=== PATIENT | male | born 1975 | race Caucasian/White ===

== ENCOUNTER 2016-10-22 13:00 | Inpatient (IN) | payer OTHER ==
[2016-10-22] MEDS ORDERED: diPHENhydraMINE PO* 25 MG PO PRN (18:38)
[2016-10-22] MEDS ORDERED: Ibuprofen TAB* 400 MG PO PRN (18:38)
[2016-10-22] MEDS ORDERED: LORazepam INJ* 2 MG/ML 1 ML VIAL IV PRN (18:38)
[2016-10-22] MEDS ORDERED: Albuterol 2.5 MG/3 ML NEB.SOL* (0.083%) INH PRN (18:56)
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
[2016-10-22] MEDS ORDERED: Lithium Carbonate ER* 450 MG TAB.ER PO SCH ×2 (21:00→22:10)
[2016-10-22] MEDS ORDERED: Gabapentin CAP(*) 300 MG PO SCH ×2 (21:00→22:10)
[2016-10-22] MEDS ORDERED: Lamotrigine XR (NF) 100 MG TAB PO SCH (21:00)
[2016-10-22] MEDS: Nicotine PATCH 14 MG/24 HR* PATCH TRANSDERM SCH (22:26)
[2016-10-22] MEDS: Cetirizine* 10 MG TAB PO SCH (22:27)
[2016-10-22] MEDS: levETIRAcetam TAB* 500 MG PO SCH (22:27)
[2016-10-22] MEDS ORDERED: lamoTRIgine TAB(*) 100 MG PO SCH (23:00)
[2016-10-22] MEDS: Gabapentin CAP(*) 300 MG PO SCH (23:13)
[2016-10-22] MEDS: Lithium Carbonate ER* 450 MG TAB.ER PO SCH (23:13)
[2016-10-23] MEDS: Omeprazole CAP* 20 MG PO SCH (06:36)
[2016-10-23] MEDS: Nicotine Patch Removal NOTE PATCH OFF SCH (06:36)
[2016-10-23] MEDS: Nicotine PATCH 14 MG/24 HR* PATCH TRANSDERM SCH (08:06)
[2016-10-23] MEDS: Sertraline* 100 MG TAB PO SCH (08:10)
[2016-10-23] MEDS: Propranolol LA CAP* 60 MG PO SCH (08:10)
[2016-10-23] MEDS: Gabapentin CAP(*) 300 MG PO SCH ×2 (08:19→17:59)
[2016-10-23] MEDS: levETIRAcetam TAB* 500 MG PO SCH ×2 (08:22→21:14)
[2016-10-23] MEDS ORDERED: lamoTRIgine TAB(*) 100 MG PO SCH (09:00)
[2016-10-23] MEDS ORDERED: LAMOTRIGINE 150 MG PO SCH (09:00)
[2016-10-23] MEDS ORDERED: Gabapentin CAP(*) 300 MG PO SCH (09:00)
--- NOTE | 2016-10-23 09:20 | EEG ---
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 He reports sometimes having a warning of headache prior to experiencing loss of awareness, unresponsiveness and right-sided shaking of his arm and leg. This lasts a few minutes and afterward the right side is numb, he feels confused and weak. It takes him 30 to 45 minutes to recover. He may also have staring spells, but he knows less about these and has only been "yelled at" by his girlfriend when she witnesses one. He is treated with Lamictal and levetiracetam and the present long-term monitoring is being undertaken in order to characterize these events and evaluate for epileptiform abnormalities. Introduction: INTRODUCTION: The EEG was monitored from 21 scalp electrodes. Nineteen electrodes consisted of the standard parasagittal, temporal and midline leads of the International 10 -20 system. In addition, special electrodes FT9 and FT10 were placed. EEG data were recorded on an [employer] system with simultaneous MPEG-4 digital video recording of patient behavior. EEG recording was in a monopolar montage with all electrodes referenced to FCz. Significant behavioral events were signaled by an event button, or putative electrical seizure events were detected by a computer program. All EEG data were reviewed in their entirety on a monitor with reconstruction of montages and adjustments of sensitivity and filtering. Simultaneous patient behavior was viewed on an adjacent monitor and correlated with the EEG. - Medications Active Medications: Albuterol (Ventolin 2.5 Mg/3 Ml Neb.Rolanda*) 2.5 mg INH Q6H PRN PRN Reason: SOB/WHEEZING Cetirizine HCl (Zyrtec*) 10 mg PO BEDTIME [facility] Last Admin: 10/22/16 22:27 Dose: 10 mg Diphenhydramine HCl (Benadryl Po*) 25 mg PO Q6H PRN PRN Reason: ITCHING Gabapentin (Neurontin Cap(*)) 600 mg PO DAILY [facility] Last Admin: 10/23/16 08:19 Dose: 600 mg Gabapentin (Neurontin Cap(*)) 300 mg PO 1800 [facility] Last Admin: 10/22/16 23:13 Dose: 300 mg Ibuprofen (Motrin Tab*) 400 mg PO Q6H PRN PRN Reason: PAIN Lamotrigine (Lamictal Tab(*)) 100 mg PO BEDTIME [facility] Last Admin: 10/22/16 23:13 Dose: 100 mg Lamotrigine (Lamictal Tab(*)) 150 mg PO DAILY [facility] Last Admin: 10/23/16 08:21 Dose: 150 mg Levetiracetam (Keppra Tab*) 1,000 mg PO BID [facility] Last Admin: 10/23/16 08:22 Dose: 1,000 mg [place] Carbonate (Ren[place]ers Carbonate Er Tab*) 900 mg PO 1800 [facility] Last Admin: 10/22/16 23:13 Dose: 900 mg Lorazepam (Ativan Inj*) 1 mg IV Q8H PRN PRN Reason: Generalized Tonic Clonic Seizu Nicotine (Nicotine Patch 14 Mg/24 Hr*) 1 patch TRANSDERM DAILY@0800 [facility] Last Admin: 10/23/16 08:06 Dose: 1 patch Omeprazole (Prilosec Cap*) 20 mg PO DAILY@0600 [facility] Last Admin: 10/23/16 06:36 Dose: 20 mg Pharmacy Profile Note (Nicotine Patch Removal Note*) 1 note PATCH OFF 0600 [facility] Last Admin: 10/23/16 06:36 Dose: 1 note Propranolol HCl (Inderal La Cap*) 60 mg PO DAILY [facility] Last Admin: 10/23/16 08:10 Dose: 60 mg Sertraline HCl (Zoloft*) 100 mg PO DAILY [facility] Last Admin: 10/23/16 08:10 Dose: 100 mg - Description Background: The waking background showed appropriate organization with clearly defined anterior-posterior voltage and frequency gradients. There was a defined posterior dominant rhythm of 8 to 8.5 Hertz, which was symmetrical and showed normal reactivity. Anteriorly, there was the expected pattern of lower voltage and more irregular theta and beta rhythms. There was excessive theta range activity intermixed within the background. The sleep background was appropriately organized with well-developed spindles and vertex waves indicative of stage 2 sleep. These sleep transients showed appropriate morphology and were bilaterally synchronous and symmetrical. Development of diffuse delta range frequencies with dropout of stage 2 architecture accompanied transition to slow wave sleep, and a lower voltage mixed frequency pattern associated with eye movements was consistent with REM sleep. Intericatal Epileptiform Activity: #10/22 Medications: lamotrigine 100mg at HS and 150mg AM and levetiracetam 1000mg BID: The background demonstrated a slow posterior dominant and excessive intermixed theta range frequencies. There is no focal slowing. The sleep background was normally organized. There are no epileptiform discharges #10/23 Medications: lamotrigine 50mg at HS and 75mg AM and levetiracetam 500mg BID: Background as previously described. During sleep, there were a few instances of isolated frontally predominant sharp waves noted during stage 2 sleep, which were not definitively epileptiform and could have represented short duration K complexes or other normal variant sleep transient. #03 10/24: Medications: lamotrigine 50mg at HS and 75mg AM and levetiracetam 500mg AM on 10/24, 250mg PM on 10/24 then stop: Background as previously described. No epileptiform discharges. #04 10/25: Medications: lamotrigine 50mg at HS and 75mg AM Background as previously described. No epileptiform discharges. #05 10/26: Medications: lamotrigine 50mg at HS and 75mg AM Background as previously described. No epileptiform discharges. Ictal Activity: #10/22: The patient experienced an event at 20:56 when he pressed the event button. He later indicated that he'd felt a headache come on. Review of the video shows that the event actually began about 4 minutes before he pressed the event button. His eyes were closed and he had small amplitude tremoring of the right arm at about 5 to 6 Hz which would start and stop. He was covered by the blanket at this time so it was not clear if his leg was shaking as well. When the nurse entered the room and turned on the light, his eyes were closed. He has asynchronous tremoring of the right arm/hand and leg but no facial involvement. One minute after the button was pressed, he began responding to the nurse with his name. He indicated his right side was numb and he did not know what had happened. He was able to lift his right arm, but somewhat weakly. He did not remember the recall phrase given to him. He then asked for a drink. There was no EEG correlate to this event. The background showed his usual waking background with eyes closed. There were no ictal patterns. #02 10/23: The patient experienced events at 10:35, 15:50, 04:51 on 10/24 and 07: 05. These events were all similar in semiology with primarily right arm shaking/ tremoring and sometimes right leg or bilateral leg involvement as well. His eyes were mostly closed during events, but at times they were noted to be open. The shaking varied in amplitude and frequency and was asynchronous between the arm and leg. The duration varied from less than a minute to almost 12 minutes ( 04:51 event). He was unresponsive to commands during all events and could not remember a recall phrase. Afterward, he often indicated the right side was numb and was unable to move the right arm well for a short time. During the 10:35 event, apparent tachycardia was noted on the EKG lead and the rhythm was potentially concerning for supraventricular tachycardia. The patient was then hooked up to telemetry, and subsequent events which appeared to demonstrate tachycardia in the EKG lead on the EEG were shown to be motion artifact with no concerning cardiac rhythm on telemetry. There was no EEG correlate to these events. There were no ictal patterns noted. #03 10/24: The patient experienced back to back events at 06:19 ad 06:30 on . Review of the video showed that he had transient right arm shaking at 06:15 which stopped, then the nurse entered his room to check his pulse after being alerted by the nurse reviewing telemetry that his monitor had alarmed. Shortly after she told him his pulse was fine, he began shaking again, lasting nearly 10 minutes. Eyes were closed and he was not responsive to commands. This ceased , he was able to answer questions and indicated he wanted a pillow placed under his head. As the nurse was about to leave the room, his eyes closed and his right arm began tremoring, with mild tremoring of the lower jaw and right leg as well. There was no EEG correlate to these events. There were no ictal patterns noted. #04 10/25: The patient experienced another event at 10:04 of right arm shaking. With this event, he was responsive and able to follow commands with his left side, though delayed. He denied pain and indicated he could not feel his arm tremoring. The tremoring stopped after about 3.5 minutes and he was not immediately able to move his right arm well, and indicated it was numb. There was no EEG correlate to this event. #05 10/26: No events - Impression Impression: This is a mildly abnormal long-term EEG due to a slow posterior dominant rhythm and mild diffuse background slowing. These findings are consistent with a mild, non-specific diffuse encephalopathy. The patient had numerous typical events during the present recording session consisting of right-sided tremoring, eyes variably opened or closed, often with diminished responsiveness and inability to remember recall phrases given during the event. At times, these events would occur [id number], starting and stopping abruptly. The EEG demonstrated his normal waking background rhythm throughout these events. Initially, there was some concern about a possible tachyarrhythmia occurring during these events, but when the patient was placed on telemetry this was found to be artifactual and he was in a normal sinus rhythm throughout. These events are non-epileptic in nature. There is no evidence to support a diagnosis of epilepsy.
--- NOTE | 2016-10-23 12:05 | PN ---
Epilepsy Service Progress Note - Subjective DOS 10/23/16 Patient has had 2 events thus far of right sided tremoring/shaking. The first occurred last night and the second around 10:30 this morning. The patient reports that he got a typical headache before pressing the button for the event last night. The EEG techs were tending to his electrodes when he had the second event, though they reported he was having right-sided shaking when they entered the room. During the event this morning, he appeared to have a period of lasting one minute. Pt is unaware of any symptoms in his chest either during this event or historically. Denies chest pain, palpitations, fluttering, etc. - Medications Active Medications: Albuterol (Ventolin 2.5 Mg/3 Ml Neb.Rolanda*) 2.5 mg INH Q6H PRN PRN Reason: SOB/WHEEZING Cetirizine HCl (Zyrtec*) 10 mg PO BEDTIME [facility] Last Admin: 10/22/16 22:27 Dose: 10 mg Diphenhydramine HCl (Benadryl Po*) 25 mg PO Q6H PRN PRN Reason: ITCHING Gabapentin (Neurontin Cap(*)) 600 mg PO DAILY [facility] Last Admin: 10/23/16 08:19 Dose: 600 mg Gabapentin (Neurontin Cap(*)) 300 mg PO 1800 [facility] Last Admin: 10/22/16 23:13 Dose: 300 mg Ibuprofen (Motrin Tab*) 400 mg PO Q6H PRN PRN Reason: PAIN Lamotrigine (Lamictal Tab(*)) 100 mg PO BEDTIME [facility] Last Admin: 10/22/16 23:13 Dose: 100 mg Lamotrigine (Lamictal Tab(*)) 150 mg PO DAILY [facility] Last Admin: 10/23/16 08:21 Dose: 150 mg Levetiracetam (Keppra Tab*) 1,000 mg PO BID [facility] Last Admin: 10/23/16 08:22 Dose: 1,000 mg [place] Carbonate ([place] Carbonate Er Tab*) 900 mg PO 1800 [facility] Last Admin: 10/22/16 23:13 Dose: 900 mg Lorazepam (Ativan Inj*) 1 mg IV Q8H PRN PRN Reason: Generalized Tonic Clonic Seizu Nicotine (Nicotine Patch 14 Mg/24 Hr*) 1 patch TRANSDERM DAILY@0800 [facility] Last Admin: 10/23/16 08:06 Dose: 1 patch Omeprazole (Prilosec Cap*) 20 mg PO DAILY@0600 [facility] Last Admin: 10/23/16 06:36 Dose: 20 mg Pharmacy Profile Note (Nicotine Patch Removal Note*) 1 note PATCH OFF 0600 [facility] Last Admin: 10/23/16 06:36 Dose: 1 note Propranolol HCl (Inderal La Cap*) 60 mg PO DAILY [facility] Last Admin: 10/23/16 08:10 Dose: 60 mg Sertraline HCl (Zoloft*) 100 mg PO DAILY [facility] Last Admin: 10/23/16 08:10 Dose: 100 mg EMU Diagnostics - Diagnostic Most Recent Vital Signs: Vital Signs: Temp Pulse Resp BP Pulse Ox 98.8 F 59 16 102/61 97 10/23/16 08:14 10/23/16 08:14 10/23/16 08:14 10/23/16 08:14 10/23/16 08:14 Interim video-EEG long-term monitoring report: #01 10/22: mild background slowing with PDR 8Hz. No epileptiform discharges. Event which occurred around 20:56 last night consisted of right sided tremoring , initially just arm, with eyes closed, and began about 4 minutes before he pressed the event button. The movements were intermittent. There was no EEG change with this. There was no tachycardia. #02 10/23: Around 10:30 the patient had another event of right arm shaking. His eyes were open during at least part of this event. He was not able to follow commands. He was initially sitting up in bed holding a towel over his eyes and his right arm was noted to begin shaking. He was given a recall phrase. He then flopped back into the bed and had higher amplitude shaking than the previous event, involving bilateral legs but right greater than left and right arm shaking. During the latter part of the event, his heart rate appeared to increase to nearly 300bpm. Question of whether this was partially motion artifact but the EKG lead was not in phase with his movements and the morphology was suggestive of possible SVT. There was no EEG correlate to this event. EMU Exam - Exam Physical/Neurological Exam: Physical Exam: General: Well appearing in no acute distress. Flat affect MSK: no extremity deformities. Multiple tattoos Derm: no rashes or lesions Neurological Exam: Mental Status: Awake and alert. Oriented to person, place, and time. Fluent. Comprehension intact. Affect appropriate. Cranial Nerves: Visual ramos full to confrontation. Pupils were equal, round, and reactive constricting from 3mm to 2mm. Versions were full and with mild end- gaze nystagmus. Facial musculature symmetric. Right cheek sensation diminished to LT. Hearing grossly intact to finger rub. Palate was upgoing bilaterally. Tongue was midline. Shoulder shrug was symmetric. Motor: Bulk, tone, and strength were normal throughout. Pronator drift was absent. There were no abnormal movements. Sensory: Sensation to light touch intact. Romberg was deferredt. Coordination: Finger to nose intact. Reflexes: 2+ throughout the upper and lower extremities with downgoing toes bilaterally. 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 He is treated with lamotrigine and levetiracetam and continues to have these events. He may also have staring spells but is less certain about these Two typical events have been recorded consisting of right sided tremoring which is variable in amplitude and frequency, starts and stops, and patient's eyes are sometimes closed. He is unable to follow commands during these or remember a recall phrase. The EEG has been normal during these events. However, in the midst of the second event, he appeared to have a 1 minute episode of tachycardia , possibly SVT. Discussed above with patient and recommended continued weaning of medications to determine whether any epileptiform activity emerges. Briefly discussed that these episodes may be coming from the mind rather than the brain. Also discussed the episode of tachycardia with him, but clarified that this happened during the second, but not the first episode, so I am not sure these are related. Will also try to capture a staring spell. Plan: * Continue rn long term care video EEG monitoring to capture typical episodes * Seizure precautions * reduce levetiracetam to 500mg BID and lamotrigine to 50mg tonight and 75mg tomorrow AM * patient has been placed on telemetry. Will ask hospitalist to review EKG lead from event as well * continue other home medications * nicotine patch * lorazepam 1mg IV prn convulsion
[2016-10-23] MEDS: Lithium Carbonate ER* 450 MG TAB.ER PO SCH (17:59)
[2016-10-23] MEDS: lamoTRIgine TAB(*) 25 MG PO SCH (21:14)
[2016-10-23] MEDS: Cetirizine* 10 MG TAB PO SCH (21:14)
[2016-10-24] MEDS: Gabapentin CAP(*) 300 MG PO SCH ×2 (09:19→18:11)
[2016-10-24] MEDS: lamoTRIgine TAB(*) 25 MG PO SCH ×2 (09:20→20:26)
[2016-10-24] MEDS: levETIRAcetam TAB* 500 MG PO SCH (09:21)
[2016-10-24] MEDS: Sertraline* 100 MG TAB PO SCH (09:22)
[2016-10-24] MEDS: Propranolol LA CAP* 60 MG PO SCH (09:22)
[2016-10-24] MEDS: Nicotine PATCH 14 MG/24 HR* PATCH TRANSDERM SCH (09:24)
[2016-10-24] MEDS: Nicotine Patch Removal NOTE PATCH OFF SCH (09:24)
[2016-10-24] MEDS: Omeprazole CAP* 20 MG PO SCH (09:27)
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
[2016-10-24] MEDS: Lithium Carbonate ER* 450 MG TAB.ER PO SCH (18:11)
[2016-10-24] MEDS: Cetirizine* 10 MG TAB PO SCH (20:26)
[2016-10-24] MEDS ORDERED: levETIRAcetam TAB* 500 MG PO SCH (21:00)
[2016-10-25] MEDS: Omeprazole CAP* 20 MG PO SCH (05:48)
[2016-10-25] MEDS: Nicotine Patch Removal NOTE PATCH OFF SCH (05:49)
[2016-10-25] MEDS: Propranolol LA CAP* 60 MG PO SCH (09:24)
[2016-10-25] MEDS: Gabapentin CAP(*) 300 MG PO SCH ×2 (09:25→18:00)
[2016-10-25] MEDS: lamoTRIgine TAB(*) 25 MG PO SCH ×2 (09:25→21:27)
[2016-10-25] MEDS: Nicotine PATCH 14 MG/24 HR* PATCH TRANSDERM SCH (09:26)
[2016-10-25] MEDS: Sertraline* 100 MG TAB PO SCH (10:50)
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
[2016-10-25] MEDS: Lithium Carbonate ER* 450 MG TAB.ER PO SCH (18:00)
[2016-10-25] MEDS: Cetirizine* 10 MG TAB PO SCH (21:27)
[2016-10-26] MEDS: Omeprazole CAP* 20 MG PO SCH (06:23)
[2016-10-26] MEDS: Nicotine Patch Removal NOTE PATCH OFF SCH (06:24)
[2016-10-26 08:24] VITALS: BP 99/68
[2016-10-26] MEDS: Nicotine PATCH 14 MG/24 HR* PATCH TRANSDERM SCH (08:37)
[2016-10-26] MEDS: Gabapentin CAP(*) 300 MG PO SCH (08:39)
[2016-10-26] MEDS: Propranolol LA CAP* 60 MG PO SCH (08:40)
[2016-10-26] MEDS: lamoTRIgine TAB(*) 25 MG PO SCH (08:40)
[2016-10-26] MEDS: Sertraline* 100 MG TAB PO SCH (08:41)
--- NOTE | 2016-10-26 09:50 | DS ---
EMU Discharge - Discharge Summary Discharge Summary: Admitted: 10/22/16 Attending: Erlinda Foster MD Admitting Diagnosis: possible epilepsy Discharge Diagnosis: psychogenic non-epileptic attacks Admission History (From Admission H&P): see H&P Admission Examination: see H&P Admission AED Medications: levetiracetam 2000mg BID lamotrigine 300mg QAM and 200mg QPM Hospital Course: The patient was admitted to the epilepsy service for long-term video EEG monitoring. The patient had 8 events consisting of asynchronous right-sided tremoring of variable amplitude and frequency, often with eyes closed, unresponsiveness or delayed responsiveness, lack of ability to remember a recall phrase and numbness of the right side afterward. These events lasted from less than a minute to almost 12 minutes and would often stop and then start back up again. He sometimes had right-sided weakness after these events which resolved relatively quickly. These were considered typical of events that the patient was having at home. Review of the EEG did not demonstrate an associated epileptiform abnormality. In fact, throughout the duration of the admission there were no epileptiform abnormalities observed. The EEG demonstrated a mildly abnormal waking and sleep background due to a slow posterior dominant rhythm, but was otherwise normal. These results were consistent with a diagnosis of psychogenic nonepileptic attacks (PNEA). This diagnosis was presented to the patient by Dr Foster. We discussed, in detail, the unconscious nature of these attacks, the mind-body connection including the power of the unconscious mind, the frequency of PNEA ( one-third of our cases), that people with PNEA are not crazy, and that these attacks are real; that is, people with PNEA are not faking the attacks and do not have overt conscious control over the attacks as they arise in the subconscious mind. Sometimes with this information, the attacks stop. We provided instructions that if the attacks persist, counseling may help. We discussed first aid for these attacks: those around should allow the attacks to run their course and then the patient should return to you prior activity or rest as needed. Since these attacks pose no risk for damage to the brain, there is no reason to go to the Emergency Department unless there is a significant injury (presumably inadvertent). Once these attacks have resolved for over a month, activity restrictions can be lifted, although on days that he does not feel well, activities should be restricted. We recommend counseling. We provided the patient with our brochure discussing PNEA. The following medication medication changes were made during the testing: levetiracetam was discontinued and lamotrigine dose was reduced to 75mg QAM and 50mg QPM. As antiepileptic seizure drugs are not effective at controlling Psychogenic Non- Epileptic Attacks (PNEA), we recommend this medication be discontinued at the time of discharge. Discharge Examination: same as admission Destination: Home. Diet: Regular. Follow-up: with PCP as scheduled. Can follow up with Dr Barajas or Dr Foster if there are any outstanding questions regarding the diagnosis of PNEA, but does not need regular neurological follow up for this diagnosis. Home Medications Medication Instructions Recorded Confirmed Type Albuterol 2.5MG/3ML (0.083%)* 2.5 mg INH Q6H PRN 01/12/15 10/22/16 History [Ventolin 2.5 MG/3 ML NEB.JOSÉ ANTONIO*] Gabapentin CAP(*) [Neurontin 300 1 tab PO QPM 10/22/16 10/22/16 History CAP(*)] Gabapentin CAP(*) [Neurontin 300 2 tab PO DAILY 10/22/16 10/22/16 History CAP(*)] [place] Carbonate ER TAB* 2 tab PO QPM 10/22/16 10/22/16 History Loratadine 10 mg PO DAILY 10/22/16 10/22/16 History Omeprazole CAP* 20 mg PO DAILY 10/22/16 10/22/16 History Propranolol HCl [Propranolol HCl 60 mg PO DAILY 10/22/16 10/22/16 History ER] Sertraline HCl [Zoloft] 1 tab PO DAILY 10/22/16 10/22/16 History Albuterol 2.5MG/3ML (0.083%)* 2.5 mg INH Q6H PRN #0 ml 10/26/16 Rx [Ventolin 2.5 MG/3 ML NEB.JOSÉ ANTONIO*] lamoTRIgine TAB(*) [Lamictal 75 mg PO DAILY #150 tab 10/26/16 Rx TAB(*)]
--- NOTE | 2016-10-26 14:21 | PN ---
Epilepsy Service Progress Note - Subjective DOS 10/26/16 No additional overnight events. His girlfriend was present in the room and we reviewed the diagnosis as well as medicaiton changes. They asked about whether he could be released to work. 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 EMU Diagnostics - Diagnostic Most Recent Vital Signs: Vital Signs: Temp Pulse Resp BP Pulse Ox 98.2 F 61 20 99/68 100 10/26/16 08:23 10/26/16 08:23 10/26/16 08:24 10/26/16 08:23 10/26/16 08:23 Interim video-EEG long-term monitoring report: #01 10/22: mild background slowing with PDR 8Hz. No epileptiform discharges. Event which occurred around 20:56 last night consisted of right sided tremoring , initially just arm, with eyes closed, and began about 4 minutes before he pressed the event button. The movements were intermittent. There was no EEG change with this. There was no tachycardia. #02 10/23: Around 10:30 the patient had another event of right arm shaking. His eyes were open during at least part of this event. He was not able to follow commands. He was initially sitting up in bed holding a towel over his eyes and his right arm was noted to begin shaking. He was given a recall phrase. He then flopped back into the bed and had higher amplitude shaking than the previous event, involving bilateral legs but right greater than left and right arm shaking. During the latter part of the event, his heart rate appeared to increase to nearly 300bpm. Question of whether this was partially motion artifact but the EKG lead was not in phase with his movements and the morphology was suggestive of possible SVT. There was no EEG correlate to this event. 3 additional events were noted, similar to above. See LTM report for full details. No EEG correlate. EKG lead on EEG potentially concerning for tachycardia but telemetry confirmed this was motion artifact and NSR was noted during these events. #03 10/24: 2 to 3 back to back events captured between 06:15 and 06:30 this morning, consisting of right sided shaking mostly in the arm but also in the leg , and there was also some tremoring of the lower jaw. Episodes of shaking lasted from 2 minutes to more than 10 minutes. No EEG correlate. Background otherwise unchanged EMU Exam - Exam Physical/Neurological Exam: Physical Exam: General: Well appearing in no acute distress. Flat affect MSK: no extremity deformities. Multiple tattoos Derm: no rashes or lesions Neurological Exam: Mental Status: Awake and alert. Oriented to person, place, and time. Fluent. Comprehension intact. Affect appropriate. Cranial Nerves: Visual ramos full to confrontation. Pupils were equal, round, and reactive constricting from 3mm to 2mm. Versions were full and with mild end- gaze nystagmus. Facial musculature symmetric. Right cheek sensation diminished to LT. Hearing grossly intact to finger rub. Palate was upgoing bilaterally. Tongue was midline. Shoulder shrug was symmetric. Motor: Bulk, tone, and strength were normal throughout. Pronator drift was absent. There were no abnormal movements. Sensory: Sensation to light touch intact. Romberg was deferredt. Coordination: Finger to nose intact. Reflexes: 2+ throughout the upper and lower extremities with downgoing toes bilaterally. 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 He is treated with lamotrigine and levetiracetam and continues to have these events. He may also have staring spells but is less certain about these Eight typical events have been recorded consisting of right sided tremoring which is variable in amplitude and frequency, starts and stops, and patient's eyes are sometimes closed. He is typically unable to follow commands during these or remember a recall phrase. The EEG has been normal during these events. There was concern for a possible cardiac tachyarrhythmia associated with these, which has now been ruled out with telemetry. No staring spells captured. Today we discussed that psychogenic attacks, though not epilepsy, can still be disabling and impair function, and until they are under better control, he cannot be released to drive any motor vehicles and should not do anything dangerous where he might be hurt if he were to have a spell (climbing to heights greater than 5 ft, swimming alone, being around open flames alone, etc.) . Typically, once episodes have ceased for a month, patients can consider lifting restrictions. Plan: * d/c assisted video EEG monitoring * Continue lamotrigine to 50mg QHS and 75mg QAM. New script sent to [facility] in [place]. * continue other home medications * needs FU with Dr. Link (PCP) but office was closed when I tried to call this morning. Advised them to call to schedule appt * He does not have a FU scheduled with Dr. Barajas at this time and does not necessarily need one since he was seeing him only for these spells. Offered FU with me in the future if any questions arise regarding this diagnosis of PNEA, but otherwise does not need neurology follow up. Re-emphasized the role of counseling in managing these attacks.
== END 2016-10-26 12:09 | disposition home or self-care (01) | DRG 53 ==
LOC: EMU 13:21
PROVIDERS: ADMIT Psychiatry & Neurology Neurology; ATTEND Psychiatry & Neurology Neurology
PROC: 4A10X4Z Monitoring of Central Nervous Electrical Activity, External Approach (ICD-10-PCS; principal; 2016-10-22)
DX: G40.89 Other seizures (principal); G93.40 Encephalopathy, unspecified; F31.9 Bipolar disorder, unspecified; J30.2 Other seasonal allergic rhinitis; F17.210 Nicotine dependence, cigarettes, uncomplicated; G93.89 Other specified disorders of brain; Z87.820 Personal history of traumatic brain injury
CPT/HCPCS: 95951; A9270-GY; J2060